=== PATIENT | female | born 1990 | race Caucasian/White ===

== ENCOUNTER 2018-09-22 10:01 | Inpatient (IN) | payer BC ==
[2018-09-22] MEDS ORDERED: CITRIC ACID-SODIUM CITRATE 15 ML CUP PO ONE (10:15)
[2018-09-22] MEDS ORDERED: ceFAZolin IN SWFI 2 GM/20 ML SYRINGE IVP ONE (10:15)
[2018-09-22 10:22] VITALS: BMI 36.6
[2018-09-22] MEDS: LACTATED RINGERS 1,000 ML IV SCH ×2 (10:38→15:06)
[2018-09-22 10:59] LABS: HCT 38.5 % (34.0-46.0); HGB 13.2 gm/dL (11.4-16.0); MCH 32.3 pg (25.0-35.0); MCHC 34.3 g/dL (31.0-37.0); MCV 94.1 fL (80.0-100.0); Mean Platelet Volume 8.3; Platelet Count 186 k/uL (150-450); RBC 4.09 m/uL (3.80-5.40); RDW 13.3 % (11.5-15.5); WBC 11.7 k/uL (3.8-10.6)
--- NOTE | 2018-09-22 11:19 | P.HPOB ---
History of Present Illness H&P Date: 09/22/18 Chief Complaint: Term , two previous sections The patient is a 28-year-old 3 para 2 scissors or 2 admitted at 39-0/7 weeks as established by a 6 week ultrasound. She is admitted for repeat low transverse section having previously undergone section 2. Her has been entirely uncomplicated and group B strep status is negative. Obstetrical history: 3 para 61672 term sections, the first for arrest of dilation and descent in the second as a repeat. Current statistics are listed in history present illness. EDC of 09/29/2018 was established by a 6 week ultrasound. Laboratory workup demonstrates a blood type of O+ with a negative antibody screen. Rubella status is immune. The remainder of the laboratory workup was within normal limits. Early Glucola as well as second trimester Glucola were within normal limits. Group B strep status is negative. Barrel Inspector history: Unremarkable with no history of any infections to include STDs. Review of Systems Review of systems is confined to history of present illness. Past Medical History Past Medical History: Thyroid Disorder Additional Past Medical History / Comment(s): hypothyroidism. GERD History of Any Multi-Drug Resistant Organisms: None Reported Past Surgical History: Section Additional Past Surgical History / Comment(s): CS X 2. [place] teeth. Past Anesthesia/Blood Transfusion Reactions: No Reported Reaction Past Psychological History: No Psychological Hx Reported Smoking Status: Never smoker Past Alcohol Use History: None Reported Past Drug Use History: None Reported - Past Family History Mother Family Medical History: No Reported History Medications and Allergies Home Medications Medication Instructions Recorded Confirmed Type Levothyroxine Sodium [Synthroid] 150 mcg PO QAM 07/22/14 09/22/18 History Pnv,Calcium 72/Iron/Folic Acid 1 each PO DAILY 03/13/16 09/22/18 History [ Plus Tablet] Allergies Allergy/AdvReac Type Severity Reaction Status Date / Time No Known Allergies Allergy Verified 07/22/14 06:35 Exam Vital Signs Temp Pulse Resp BP Pulse Ox 09/22/18 10:18 97.4 F L 90 16 130/77 98 Intake and Output 09/21/18 09/22/18 09/22/18 22:59 06:59 14:59 Other: Weight 90.718 kg In general, this is a well-developed, well-nourished white female in no acute distress. Her heart has a regular rhythm and rate without murmur. Her lungs are clear to auscultation bilaterally in all angel. Her abdomen is gravid, nondistended, has normal active bowel sounds, soft, nontender, and without any palpable masses aside from uterine fundus. Her extremities are without any cyanosis, clubbing, or significant edema and are nontender to palpation bilaterally. Digital cervical examination is deferred. Results Result Diagrams: 09/22/18 10:36 Abnormal Lab Results - Last 24 Hours (Table) 09/22/18 Range/Units 10:36 WBC 11.7 H (3.8-10.6) k/uL Assessment and Plan (1) Term Current Visit: Yes Status: Acute Code(s): Z34.80 - ENCOUNTER FOR SUPRVSN OF NORMAL , UNSP TRIMESTER SNOMED Code(s): 92246182 (2) Previous section Current Visit: Yes Status: Acute Code(s): Z98.89 - OTHER SPECIFIED POSTPROCEDURAL STATES * DO NOT USE * SNOMED Code(s): 979146141 Plan: The patient is admitted for repeat low transverse section. The risks and complications the procedure have been thoroughly discussed and she has voiced understanding and agreed to proceed.
[2018-09-22 11:23] LABS: Band Neutrophils % 2 %; Lymphocytes # (M) 2.46 k/uL (1.0-4.8); Metamyelocytes # (M) 0.12 k/uL (0); Metamyelocytes % 1 %; Myelocytes # (M) 0.12 k/uL (0); Myelocytes % 1 %; Neutrophils % (M) 71 %; Nucleated Red Blood Cells 0 /100 WBC (0-0); Total Cells Counted 200
[2018-09-22] MEDS ORDERED: ONDANSETRON 4 MG/2 ML VIAL ONE (13:42)
[2018-09-22] MEDS ORDERED: KETOROLAC 30 MG/ML 1 ML VIAL ONE (13:42)
[2018-09-22] MEDS ORDERED: OXYTOCIN 10 UNIT/ML 1 ML VIAL ONE (13:42)
[2018-09-22] MEDS ORDERED: NALBUPHINE 10 MG/ML VIAL (10ML MDV) ONE (13:42)
[2018-09-22] MEDS ORDERED: MORPHINE SULFATE (PF) 0.3 MG/0.3 ML SYR ONE (13:42)
[2018-09-22] MEDS ORDERED: ceFAZolin 1,000 MG VIAL ONE (13:42)
[2018-09-22] MEDS ORDERED: diphenhydrAMINE 50 MG/ML 1 ML VIAL IVP PRN ×2 (14:31)
[2018-09-22] MEDS ORDERED: ZOLPIDEM 5 MG TAB PO PRN (14:31)
[2018-09-22] MEDS ORDERED: METOCLOPRAMIDE 5 MG/ML 2 ML VIAL IVP PRN (14:31)
[2018-09-22] MEDS ORDERED: diphenhydrAMINE 50 MG CAP PO PRN (14:31)
[2018-09-22] MEDS ORDERED: KETOROLAC 30 MG/ML 1 ML VIAL IVP PRN (14:31)
[2018-09-22] MEDS ORDERED: LANOLIN CREAM 5 GM TUBE TOPICAL PRN (14:31)
[2018-09-22] MEDS ORDERED: HYDROcodone/APAP 7.5-325MG 1 EACH TAB PO PRN (14:31)
[2018-09-22] MEDS ORDERED: ACETAMINOPHEN TAB 325 MG TAB PO PRN (14:31)
[2018-09-22] MEDS ORDERED: NALOXONE 0.4 MG/ML 1 ML VIAL IV PRN (14:31)
[2018-09-22] MEDS ORDERED: diphenhydrAMINE 25 MG CAP PO PRN (14:31)
[2018-09-22] MEDS ORDERED: SIMETHICONE 80 MG CHEWABLE PO PRN (14:31)
[2018-09-22] MEDS ORDERED: ONDANSETRON 4 MG/2 ML VIAL IVP PRN (14:31)
--- NOTE | 2018-09-22 14:38 | P.OP ---
Date of Procedure: 09/22/18 Preoperative Diagnosis: #1. 39-0/7 weeks, previous section x2 Postoperative Diagnosis: Same Procedure(s) Performed: #1. Repeat low transverse section Anesthesia: spinal Surgeon: Jhon Aponte Business Analyst Project Manager #1: Analy Marinelli Estimated Blood Loss (ml): 500 IV fluids (ml): 800 Urine output (ml): 200 Pathology: none sent Condition: stable Disposition: floor Operative Findings: Intraoperatively, there was a moderate amount of scarring at the level of the muscles and fascia though the uterus was relatively unscarred. The scarring was mostly dense in the midline raphae to just above the bladder. The patient was delivered of a viable 8 lbs. 0 oz. baby girl with Apgars of 8 at 1 minute and 9 at 5 minutes delivered in the left occiput transverse position. The placenta was delivered manually, intact, and grossly normal with a grossly normal three-vessel cord. The uterus, tubes, and ovaries were entirely normal to inspection. Description of Procedure: The patient was prepped and draped in usual fashion after spinal anesthesia was administered by the anesthesiologist. A Pfannenstiel incision was made through a pre-existing scar and extended to the abdomen without difficulty. There was some moderate scarring in the midline just below the fascia and between the rectus muscles which was divided sharply. Bladder blade was placed and the bladder peritoneum elevated and incised and reflected distally. An incision was made in the transverse plane for approximately 2 cm at which time the uterus was entered and clear fluid was noted. The incision was extended in both directions using bandage scissors. The head was encountered in the field and delivered up and through the field where the nose and mouth were thoroughly suctioned. Remainder of the infant was delivered onto the field where the cord was doubly clamped, cut, and the passed for resuscitative measures with weight and Apgars as noted above. A segment of cord was doubly clamped, cut, and set aside should cord gases become necessary. The placenta was delivered manually and intact as noted above. The uterus was exteriorized and the interior cavity of the uterus swept of any remaining placental or membranous fragments. The margins of the incision were grasped with Marti clamps and the incision closed in 2 layers. The first layer was a running locking stitch of 0 chromic catgut followed by a running imbricating stitch of 0 chromic catgut. Some bleeding at the left angle the incision was made hemostatic with several locked stitches on the second layer. There were no other small bleeders noted. The posterior cul-de-sac was suctioned with a guard and the uterus was replaced within the abdominal cavity. The gutters were swept of any remaining blood, fluid, or clot. The incision was reexamined and found to be hemostatic. The parietal peritoneum was loosely reapproximated and layer of muscles examined and found to be hemostatic. The fascia was closed with a single running stitch of 0 Vicryl proceeding from one margin to the other. The subcutaneous tissues were irrigated, made hemostatic with the Bovie, and reapproximated with a running stitch of 30 plain catgut. The skin was reapproximated with a running subcuticular stitch of 4-0 Vicryl from margin to margin. This was followed by placement of half-inch Steri-Strips using Mastisol. Estimated blood loss for the entire case was approximate 500 mL. There were no complications. All sponge, instrument, and needle counts were correct. The patient tolerated the procedure well and proceeded to the recovery room in stable condition. Both mother and infant are resting comfortably in recovery.
[2018-09-22] MEDS ORDERED: OXYTOCIN 20 UNITS/1000 ML NS 1,000 ML IV SCH (14:45)
[2018-09-22] MEDS: SENNOSIDES-DOCUSATE SODIUM 1 EACH TAB PO SCH (19:42)
[2018-09-22 21:16] VITALS: RESP 16
[2018-09-23] MEDS: LACTATED RINGERS 1,000 ML IV SCH ×3 (00:19→23:52)
--- NOTE | 2018-09-23 06:14 | P.PN ---
Progress Note - Text Progress Note Date: 09/23/18 Post op day 1 from duramorph spinal. Patient doing well, able to ambulate, able to urinate, denies leg weakness, or excessive urticaria. Pain well controlled, no respiratory distress, no supplemental O2 use. anesthesia sign off, call if there is any issue.
[2018-09-23] MEDS: LEVOTHYROXINE 75 MCG TAB PO SCH (06:34)
[2018-09-23 07:07] LABS: Basophils # (A) 0.1 k/uL (0-0.2); Basophils % (A) 0 %; Eosinophils # (A) 0.1 k/uL (0-0.7); Eosinophils % (A) 1 %; HCT 36.2 % (34.0-46.0); HGB 12.3 gm/dL (11.4-16.0); Lymphocytes # (A) 1.5 k/uL (1.0-4.8); Lymphocytes % (A) 10 %; MCH 32.2 pg (25.0-35.0); MCHC 33.9 g/dL (31.0-37.0); MCV 95.1 fL (80.0-100.0); Mean Platelet Volume 7.9; Monocytes # (A) 0.9 k/uL (0-1.0); Monocytes % (A) 6 %; Neutrophils % (A) 83 %; Platelet Count 193 k/uL (150-450); RBC 3.81 m/uL (3.80-5.40); RDW 13.3 % (11.5-15.5); WBC 15.7 k/uL (3.8-10.6)
[2018-09-23] MEDS: SENNOSIDES-DOCUSATE SODIUM 1 EACH TAB PO SCH ×2 (08:04→19:34)
--- NOTE | 2018-09-23 08:35 | P.PNOBGPC ---
Subjective - Subjective Patient reports: Reports appetite normal, Reports voiding normally, Reports pain well controlled, Reports ambulating normally : doing well, nursing well Objective - Vital Signs Latest vital signs: Vital Signs Temp Pulse Pulse Resp BP Pulse Ox 09/23/18 04:00 98.0 F 82 16 115/61 96 09/23/18 00:00 97.7 F 97 16 119/67 100 09/22/18 20:00 97.6 F 108 H 16 114/58 09/22/18 16:41 97.7 F 86 20 113/58 97 09/22/18 16:11 97.0 F L 97 20 118/58 97 09/22/18 16:00 97.0 F L 97 20 118/58 98 09/22/18 15:59 20 09/22/18 15:41 97.0 F L 94 20 126/69 97 09/22/18 15:26 97.0 F L 81 20 122/60 96 09/22/18 15:11 75 16 123/61 96 09/22/18 14:56 107 H 16 115/56 97 09/22/18 14:41 96.8 F L 101 H 16 125/63 95 09/22/18 10:18 97.4 F L 90 16 130/77 98 Intake and Output 09/22/18 09/23/18 09/23/18 22:59 06:59 14:59 Intake Total 260 600 Output Total 450 750 Balance -190 -150 Intake: Oral 260 Other 600 Output: Urine 450 750 - Exam Extremities: Present: normal Abdomen: Present: normal appearance, soft. Absent: distention, tenderness Incision: Present: normal, dry, intact Uterus: Present: normal, firm (The uterine fundus as tonic and nontender at the umbilicus.) - Labs Labs: Abnormal Lab Results - Last 24 Hours (Table) 09/22/18 09/23/18 Range/Units 10:36 06:52 WBC 11.7 H 15.7 H (3.8-10.6) k/uL Neutrophils # 13.0 H (1.3-7.7) k/uL Neutrophils # (Manual) 8.50 H (1.3-7.7) k/uL Metamyelocytes # (Man) 0.12 H (0) k/uL Myelocytes # (Manual) 0.12 H (0) k/uL Assessment and Plan (1) Term Current Visit: Yes Status: Acute Code(s): Z34.80 - ENCOUNTER FOR SUPRVSN OF NORMAL , UNSP TRIMESTER SNOMED Code(s): 59182893 (2) Previous section Current Visit: Yes Status: Acute Code(s): Z98.89 - OTHER SPECIFIED POSTPROCEDURAL STATES * DO NOT USE * SNOMED Code(s): 271169214 (3) S/P section Current Visit: Yes Status: Acute Code(s): Z98.89 - OTHER SPECIFIED POSTPROCEDURAL STATES * DO NOT USE * SNOMED Code(s): 607707751 Plan: Continue routine postoperative care. I have encouraged the patient and the hallways regularly. Probable discharge tomorrow morning pending no complications.
[2018-09-23] MEDS: IBUPROFEN 600 MG TAB PO PRN ×2 (16:57→23:05)
[2018-09-24] MEDS: HYDROcodone/APAP 5-325MG 1 EACH TAB PO PRN ×2 (05:40→09:51)
[2018-09-24] MEDS: LEVOTHYROXINE 75 MCG TAB PO SCH (05:41)
[2018-09-24 08:39] VITALS: BP 120/70; PULSE 86; TEMP 98.9
--- NOTE | 2018-09-24 08:45 | P.DS ---
Providers Date of admission: 09/22/18 10:01 Expected date of discharge: 09/24/18 Attending physician: Jhon Aponte Primary care physician: Stated None - Discharge Diagnosis(es) (1) Term Current Visit: Yes Status: Acute (2) Previous section Current Visit: Yes Status: Acute (3) S/P section Current Visit: Yes Status: Acute Hospital Course: The patient is a 28-year-old 3 para 2001 admitted at 39-0/7 weeks by good dating parameters perches admitted for repeat low transverse section having undergone 2 previous sections. Her was entirely incompetent and group E strep status was negative. She was taken to the operating room where she was delivered of a viable 8 lbs. 0 oz. baby girl with Apgars of 8 at 1 minute and 9 at 5 minutes. Her postoperative course was again entirely unremarkable with vital signs remained stable and her temperature was afebrile throughout. She was deemed stable for discharge on post operative day #2 was discharged home to follow-up in the office in 2 weeks for an incision check and 6 weeks routinely. Discharge instructions included calling for any significantly increased bleeding or foul-smelling lochia, significantly increased fever abdominal pain, perineal complaints, breast complaints, incisional complaints, or anything else that concerned her. She was additionally instructed to have nothing in the vagina for at least 6 weeks time to include intercourse. She understood her instructions and agrees to follow up as noted above. Discharge medications included continued vitamins as she has opted to breast-feed perches otherwise provided with a prescription for Tylenol No. 3, 1-2 by mouth every 6 hours when necessary pain, #20 dispensed with no refills. Maternal blood type is O+ and rubella status is immune. Discharge hemoglobin and hematocrit were 12.3 and 36.2 respectively. Procedures: #1. Repeat low transverse section Patient Condition at Discharge: Good Plan - Discharge Summary Discharge Rx Participant: No New Discharge Prescriptions: No Action Levothyroxine Sodium [Synthroid] 150 mcg PO QAM Pnv,Calcium 72/Iron/Folic Acid [ Plus Tablet] 1 each PO DAILY Discharge Medication List Levothyroxine Sodium [Synthroid] 150 mcg PO QAM 07/22/14 [History] Pnv,Calcium 72/Iron/Folic Acid [ Plus Tablet] 1 each PO DAILY 03/13/16 [ History] Follow up Appointment(s)/Referral(s): Jhon Aponte MD [STAFF PHYSICIAN] - 2 Weeks Discharge Disposition: HOME SELF-CARE
[2018-09-24] MEDS: SENNOSIDES-DOCUSATE SODIUM 1 EACH TAB PO SCH (10:25)
== END 2018-09-24 09:50 | disposition home or self-care (01) | DRG 788 ==
LOC: 4FBP 10:01
PROVIDERS: ADMIT Obstetrics & Gynecology; ATTEND Obstetrics & Gynecology
PROC: 10D00Z1 Extraction of Products of Conception, Low, Open Approach (ICD-10-PCS; principal; 2018-09-22 13:51)
DX: O34.211 Maternal care for low transverse scar from previous cesarean delivery (principal); O99.284 Endocrine, nutritional and metabolic diseases complicating childbirth; E03.9 Hypothyroidism, unspecified; Z37.0 Single live birth; Z79.890 Hormone replacement therapy; Z3A.39 39 weeks gestation of pregnancy
CPT/HCPCS: 85025; 86850; 86900; 86901

== ENCOUNTER 2020-08-17 10:06 | Inpatient (IN) | payer BC ==
[2020-08-16 14:27] VITALS: BMI 35.6
[2020-08-17] MEDS ORDERED: METHYLERGONOVINE 0.2 MG/ML 1 ML AMP IM PRN (10:20)
[2020-08-17] MEDS ORDERED: OXYTOCIN 10 UNIT/ML 1 ML VIAL IM PRN (10:20)
[2020-08-17] MEDS ORDERED: CARBOPROST TROMETHAMINE 250 MCG/ML 1 ML AMP IM PRN (10:20)
[2020-08-17] MEDS ORDERED: LIDOCAINE 0.5% (PF) 5 MG/ML (50 ML SDV) SQ PRN (10:20)
[2020-08-17] MEDS ORDERED: TERBUTALINE 1 MG/ML VIAL SQ PRN (10:20)
[2020-08-17] MEDS: LACTATED RINGERS 1,000 ML IV SCH ×4 (10:35→22:20)
[2020-08-17 10:58] LABS: Basophils # (A) 0.1 k/uL (0-0.2); Basophils % (A) 1 %; Eosinophils # (A) 0.3 k/uL (0-0.7); Eosinophils % (A) 2 %; HCT 42.5 % (34.0-46.0); HGB 14.3 gm/dL (11.4-16.0); Lymphocytes # (A) 2.2 k/uL (1.0-4.8); Lymphocytes % (A) 17 %; MCH 31.2 pg (25.0-35.0); MCHC 33.6 g/dL (31.0-37.0); Mean Platelet Volume 8.7; Monocytes # (A) 0.6 k/uL (0-1.0); Monocytes % (A) 5 %; Neutrophils # (A) 9.6 k/uL (1.3-7.7); Neutrophils % (A) 75 %; Platelet Count 214 k/uL (150-450); RBC 4.57 m/uL (3.80-5.40); WBC 12.8 k/uL (3.8-10.6)
[2020-08-17] MEDS ORDERED: CITRIC ACID-SODIUM CITRATE 15 ML CUP PO ONE (11:46)
[2020-08-17] MEDS ORDERED: diphenhydrAMINE 25 MG CAP PO PRN (13:29)
[2020-08-17] MEDS ORDERED: HYDROcodone/APAP 5-325MG 1 EACH TAB PO PRN (13:29)
[2020-08-17] MEDS ORDERED: HYDROcodone/APAP 7.5-325MG 1 EACH TAB PO PRN (13:29)
[2020-08-17] MEDS ORDERED: NALOXONE 0.4 MG/ML 1 ML VIAL IV PRN (13:29)
[2020-08-17] MEDS ORDERED: diphenhydrAMINE 50 MG CAP PO PRN (13:29)
[2020-08-17] MEDS ORDERED: diphenhydrAMINE 50 MG/ML 1 ML VIAL IVP PRN ×2 (13:29)
[2020-08-17] MEDS ORDERED: ZOLPIDEM 5 MG TAB PO PRN (13:29)
[2020-08-17] MEDS ORDERED: ONDANSETRON 4 MG/2 ML VIAL IVP PRN (13:29)
[2020-08-17] MEDS ORDERED: METOCLOPRAMIDE 5 MG/ML 2 ML VIAL IVP PRN (13:29)
[2020-08-17] MEDS ORDERED: OXYTOCIN 20 UNITS/1000 ML NS 1,000 ML IV SCH (13:30)
--- NOTE | 2020-08-17 13:34 | P.HPOB ---
History of Present Illness H&P Date: 08/17/20 Chief Complaint: 39 and one sevenths weeks, previous section 3, un desired fertilit The patient is a 30-year-old 4 para 3003 who presents to the hospital 39 and one sevenths weeks as established by seven-week ultrasound. She is admitted for repeat low transverse section with intraoperative bilateral tubal occlusion using Filshie clips. She has had a history of 3 previous sections and is requesting repeat. Consent was signed for tubal ligation in the office. Her has otherwise been entirely uncomplicated and group B strep status is negative. Obstetrical history: 4 para 3003 with 3 term sections. Current statistics are listed in history present illness. EDC of 08/23/2020 was established by seven-week ultrasound. Laboratory workup demonstrated a blood type of O+ with a negative antibody screen. Rubella status is immune. The remainder of the laboratory workup was within normal limits. One hour Glucola is normal and group B strep status is negative. Gynecologic history: Unremarkable with no history of any infections to include STDs. Review of Systems Review of systems is confined to history of present illness. Past Medical History Past Medical History: Thyroid Disorder Additional Past Medical History / Comment(s): hypothyroidism History of Any Multi-Drug Resistant Organisms: None Reported Past Surgical History: Section Additional Past Surgical History / Comment(s): CS X 3. [place] teeth. Past Anesthesia/Blood Transfusion Reactions: No Reported Reaction Past Psychological History: No Psychological Hx Reported Smoking Status: Never smoker Past Alcohol Use History: None Reported Past Drug Use History: None Reported - Past Family History Mother Family Medical History: No Reported History Father Family Medical History: Cancer, Diabetes Mellitus, Hyperlipidemia Medications and Allergies Home Medications Medication Instructions Recorded Confirmed Type Levothyroxine Sodium [Synthroid] 150 mcg PO QAM 07/22/14 08/17/20 History Pnv,Calcium 72/Iron/Folic Acid 1 each PO HS 03/13/16 08/17/20 History [ Plus Tablet] Allergies Allergy/AdvReac Type Severity Reaction Status Date / Time No Known Allergies Allergy Verified 08/17/20 10:19 Exam Vital Signs Temp Pulse Resp BP Pulse Ox 08/17/20 10:18 96.8 F L 92 16 121/68 99 Intake and Output 08/16/20 08/17/20 08/17/20 22:59 06:59 14:59 Other: Weight 88.451 kg In general, this is a well-developed, well-nourished white female in no acute distress. Her heart has a regular rhythm and rate without murmur. Her lungs are clear to auscultation bilaterally in all angel. Her abdomen is gravid, nondistended, has normal active bowel sounds, is soft, nontender, and without any palpable masses aside from uterine fundus. Her extremities are without any cyanosis, clubbing, or significant edema and are nontender to palpation bilaterally. Digital cervical examination is deferred. Results Result Diagrams: 08/17/20 10:29 Abnormal Lab Results - Last 24 Hours (Table) 08/17/20 Range/Units 10:29 WBC 12.8 H (3.8-10.6) k/uL Neutrophils # 9.6 H (1.3-7.7) k/uL Assessment and Plan (1) Family planning Current Visit: Yes Status: Acute Code(s): Z30.09 - ENCOUNTER FOR OTH GENERAL CNSL AND ADVICE ON CONTRACEPTION SNOMED Code(s): 596333945 (2) Term Current Visit: Yes Status: Acute Code(s): Z34.80 - ENCOUNTER FOR SUPRVSN OF NORMAL , UNSP TRIMESTER SNOMED Code(s): 60195285 (3) Previous section Current Visit: Yes Status: Acute Code(s): Z98.89 - OTHER SPECIFIED POSTPROCEDURAL STATES * DO NOT USE * SNOMED Code(s): 572534930 Plan: The patient is admitted for repeat low transverse section with intraoperative bilateral tubal occlusion using Filshie clips. Risks and complications of the procedures have been thoroughly discussed and she has signed consent for tubal ligation in the office.
--- NOTE | 2020-08-17 13:39 | P.OP ---
Date of Procedure: 08/17/20 Preoperative Diagnosis: #1. 39 and one sevenths weeks, previous section 3 #2. Undesired fertility Postoperative Diagnosis: Same Procedure(s) Performed: #1. Repeat low transverse section #2. Intraoperative bilateral tubal occlusion with Filshie clips Anesthesia: spinal Surgeon: Jhon Aponte Cream Ripener #1: Mariangel Guy Estimated Blood Loss (ml): 400 IV fluids (ml): 800 Urine output (ml): 100 Pathology: none sent Condition: stable Disposition: floor Operative Findings: There was a significant amount of scarring at the level of the fascia and muscles. There was some peritoneal scarring at the bladder flap. No complications were encountered despite this. She was delivered of a viable 8 lbs. 4 oz. baby boy with Apgars of 9 at 1 minute and 9 at 5 minutes in the vertex presentation. The placenta was delivered manually and intact was otherwise grossly normal with a grossly normal three-vessel cord. The uterus, tubes, and ovaries were entirely normal otherwise. A Filshie clip was placed firmly across the isthmic portion of each fallopian tube. Description of Procedure: The patient was prepped and draped in usual fashion after spinal anesthesia was administered by the anesthesiologist. A Pfannenstiel incision was made through pre-existing scar and extended into the abdominal cavity with a small amount of difficulty at the level of the fascia which was densely scarred and fairly thick. Once the abdomen was entered there was some filmy scarring at the level of the bladder flap which was reduced by taking the bladder flap down. A 270 in cision was then made in the transverse plane of the lower uterine segment to enter the uterus at which time clear fluid was noted. The head was delivered up and through the incision where the nose and mouth were thoroughly suctioned. The remainder of the was delivered onto the field where the cord was doubly clamped, cut, and the infant passed resuscitative measures with weight and Apgars as noted above. cord blood was collected. A segment of cord was doubly clamped, cut, and set aside should cord gases become necessary. The placenta was delivered manually and intact as noted above. The uterus was exteriorized and the interior cavity of the uterus swept of any remaining placental or membranous fragments. The margins of the incision were grasped with Marti clamps and the incision closed in a single running locking stitch of 0 chromic catgut from margin to margin. Hemostasis appeared excellent. The posterior cul-de-sac was suctioned using a guard as well as a laparotomy sponge. Uterus was replaced within the abdominal cavity and the incision again reexamined and found to be hemostatic. The gutters were swept of any remaining blood, fluid, or clot. The parietal peritoneum was unable to be loosely approximated given the previous scarring and so a loose [id number] stitch was utilized to reapproximate the muscles and peritoneum in the midline. The area of muscles were examined and made hemostatic with the Bovie. The fascia was closed with 2 running stitches of 0 Vicryl proceeding from margin to margin. The subcutaneous tissues were irrigated, made hemostatic with the Bovie, and reapproximated with a running stitch of 30 plain catgut. The skin was reapproximated with a running subcuticular stitch of 4-0 Vicryl followed by half-inch Steri-Strips placed with Mastisol. Estimated blood loss for the case was approximate 400 mL. There are no complications. The patient tolerated the procedure well and proceeded to the recovery room in stable condition. All sponge, instrument, and needle counts were correct. Both mother and are resting comfortably in recovery.
[2020-08-17] MEDS: SENNOSIDES-DOCUSATE SODIUM 1 EACH TAB PO SCH (19:40)
[2020-08-17] MEDS: KETOROLAC 15 MG/ML 1 ML VIAL IVP PRN (21:11)
[2020-08-18] MEDS ORDERED: ONDANSETRON 4 MG/2 ML VIAL IVP PRN (01:34)
[2020-08-18] MEDS ORDERED: diphenhydrAMINE 50 MG/ML 1 ML VIAL IVP PRN ×2 (01:34)
[2020-08-18] MEDS ORDERED: NALOXONE 0.4 MG/ML 1 ML VIAL IV PRN (01:35)
[2020-08-18] MEDS: KETOROLAC 15 MG/ML 1 ML VIAL IVP PRN (04:50)
--- NOTE | 2020-08-18 06:30 | P.PN ---
Progress Note - Text Date:[ 08/18/2020] Time: 06:08 The patient is status post section Vital signs stable VAS:0-10 Patient has no complaints of pain. The patient incurred some minimal itching yesterday, this itching is now subsiding. Pain meds to be managed by service.
[2020-08-18 07:53] LABS: Basophils % (A) 0 %; Eosinophils # (A) 0.2 k/uL (0-0.7); Eosinophils % (A) 2 %; HCT 37.3 % (34.0-46.0); HGB 12.3 gm/dL (11.4-16.0); Lymphocytes # (A) 1.4 k/uL (1.0-4.8); Lymphocytes % (A) 12 %; Mean Platelet Volume 8.5; Monocytes # (A) 0.6 k/uL (0-1.0); Monocytes % (A) 6 %; Neutrophils # (A) 9.2 k/uL (1.3-7.7); Neutrophils % (A) 79 %; Platelet Count 169 k/uL (150-450); RBC 3.97 m/uL (3.80-5.40); RDW 12.7 % (11.5-15.5); WBC 11.6 k/uL (3.8-10.6)
--- NOTE | 2020-08-18 08:38 | P.PNOBGPC ---
Subjective - Subjective Patient reports: Reports appetite normal, Reports voiding normally, Reports pain well controlled, Reports ambulating normally : doing well, nursing well Objective - Vital Signs Latest vital signs: Vital Signs Temp Pulse Resp BP Pulse Ox 08/18/20 04:00 97.9 F 80 18 111/65 98 08/18/20 00:00 97.9 F 78 18 118/72 100 08/17/20 20:00 97.8 F 82 18 111/72 98 08/17/20 16:00 96.8 F L 87 16 114/61 98 08/17/20 15:10 96.9 F L 92 16 112/72 99 08/17/20 14:40 100 16 111/63 99 08/17/20 14:10 89 18 123/63 08/17/20 13:55 97.1 F L 94 16 113/64 100 08/17/20 13:40 87 16 124/74 100 08/17/20 13:25 88 18 111/56 99 08/17/20 13:10 96.8 F L 84 18 108/57 99 08/17/20 10:18 96.8 F L 92 16 121/68 99 Intake and Output 08/17/20 08/18/20 08/18/20 22:59 06:59 14:59 Output Total 500 Balance -500 Output: Urine 500 Uretheral (Jimenez) 200 Other: Voiding Method Indwelling Catheter # Voids 1 - Exam Extremities: Present: normal Abdomen: Present: normal appearance, soft. Absent: distention, tenderness Incision: Present: normal, dry, intact Uterus: Present: normal, firm (Uterine fundus as tonic and nontender around the umbilicus) - Labs Labs: Abnormal Lab Results - Last 24 Hours (Table) 08/17/20 08/18/20 Range/Units 10:29 07:30 WBC 12.8 H 11.6 H (3.8-10.6) k/uL Neutrophils # 9.6 H 9.2 H (1.3-7.7) k/uL Assessment and Plan (1) Family planning Current Visit: Yes Status: Acute Code(s): Z30.09 - ENCOUNTER FOR OTH GENERAL CNSL AND ADVICE ON CONTRACEPTION SNOMED Code(s): 984469109 (2) Term Current Visit: Yes Status: Acute Code(s): Z34.80 - ENCOUNTER FOR SUPRVSN OF NORMAL , UNSP TRIMESTER SNOMED Code(s): 03179624 (3) Previous section Current Visit: Yes Status: Acute Code(s): Z98.89 - OTHER SPECIFIED POSTPROCEDURAL STATES * DO NOT USE * SNOMED Code(s): 657369606 (4) S/P section Current Visit: Yes Status: Acute Code(s): Z98.89 - OTHER SPECIFIED POSTPROCEDURAL STATES * DO NOT USE * SNOMED Code(s): 224075809 Plan: Continue routine postoperative care. I encouraged the patient ambulate in the hallways routinely and would anticipate discharge home tomorrow pending no complications.
[2020-08-18] MEDS: SENNOSIDES-DOCUSATE SODIUM 1 EACH TAB PO SCH ×2 (13:45→21:01)
[2020-08-18] MEDS: IBUPROFEN 600 MG TAB PO PRN (19:20)
[2020-08-18] MEDS: SIMETHICONE 80 MG CHEWABLE PO PRN (19:20)
[2020-08-19] MEDS: ACETAMINOPHEN TAB 325 MG TAB PO PRN ×2 (00:05→05:52)
[2020-08-19] MEDS: IBUPROFEN 600 MG TAB PO PRN ×2 (03:29→08:23)
[2020-08-19] MEDS: SIMETHICONE 80 MG CHEWABLE PO PRN (03:29)
[2020-08-19] MEDS: SENNOSIDES-DOCUSATE SODIUM 1 EACH TAB PO SCH (08:23)
[2020-08-19 08:30] VITALS: BP 115/76; PULSE 98; RESP 16; TEMP 98.5
--- NOTE | 2020-08-19 10:38 | P.DS ---
Providers Date of admission: 08/17/20 10:06 Expected date of discharge: 08/19/20 Attending physician: hJon Aponte Primary care physician: Stated None - Discharge Diagnosis(es) (1) Family planning Current Visit: Yes Status: Acute (2) Term Current Visit: Yes Status: Acute (3) Previous section Current Visit: Yes Status: Acute (4) S/P section Current Visit: Yes Status: Acute Hospital Course: The patient is a 30-year-old 4 para 3003 admitted at 39-1/7 weeks by good dating parameters. She is admitted for repeat low transverse section with intraoperative bilateral tubal occlusion using Filshie clips. Her has been entirely uncomplicated and group B strep status is negative. She was taken the operating room where she underwent the above procedures and an incompetent fashion. She was delivered of a viable 8 lbs. 4 oz. baby boy with Apgars of 9 at 1 minute and 9 at 5 minutes. Her postoperative and courses have been entirely unremarkable vital signs remaining stable and her temperature was afebrile throughout. She was deemed stable for discharge on the morning of postoperative day #2 was discharged home to follow-up in the office in 2 weeks for an incision check and 6 weeks routinely. Discharge instructions included calling for any significantly increased bleeding or foul-smelling lochia, significantly increased fever or abdominal pain, perineal complaints, breast complaints, incisional complaints, or anything else that concerned her. She was additionally instructed to have nothing in the vagina for at least 6 weeks time and to abstain from any heavy lifting over the same period of time. She was lastly instructed to do no driving until off of all pain medications or 2 weeks' time, whichever came first. She understands all of her instructions and agrees to follow up as noted above. Discharge medications included a prescription for Tylenol 3, 1-2 by mouth every 6 hours when necessary pain, #20 dispensed with no refills. She was additionally use [id number] analgesic pain medications as needed as well as to continue vitamins as she has opted to breast-feed. Maternal blood type is O+ and rubella status is immune. Discharge hemoglobin and hematocrit were 12.3 and 37.3 respectively. Procedures: #1. Repeat low transverse section #2. Intraoperative bilateral tubal occlusion with Filshie clips Patient Condition at Discharge: Stable Plan - Discharge Summary Discharge Rx Participant: Yes New Discharge Prescriptions: No Action Levothyroxine Sodium [Synthroid] 150 mcg PO QAM Pnv,Calcium 72/Iron/Folic Acid [ Plus Tablet] 1 each PO HS Discharge Medication List Levothyroxine Sodium [Synthroid] 150 mcg PO QAM 07/22/14 [History] Pnv,Calcium 72/Iron/Folic Acid [ Plus Tablet] 1 each PO HS 03/13/16 [History] Follow up Appointment(s)/Referral(s): Jhon Aponte MD [STAFF PHYSICIAN] - 2 Weeks Discharge Disposition: HOME SELF-CARE
== END 2020-08-19 12:00 | disposition home or self-care (01) | DRG 785 ==
LOC: 4FBP 10:06
PROVIDERS: ADMIT Obstetrics & Gynecology; ATTEND Obstetrics & Gynecology
PROC: 10D00Z1 Extraction of Products of Conception, Low, Open Approach (ICD-10-PCS; principal; 2020-08-17 12:12)
PROC: 0UL70CZ Occlusion of Bilateral Fallopian Tubes with Extraluminal Device, Open Approach (ICD-10-PCS; principal; 2020-08-17 12:12)
DX: O99.284 Endocrine, nutritional and metabolic diseases complicating childbirth (principal); O34.211 Maternal care for low transverse scar from previous cesarean delivery; E03.9 Hypothyroidism, unspecified; Z30.2 Encounter for sterilization; Z37.0 Single live birth; Z3A.39 39 weeks gestation of pregnancy; Z79.890 Hormone replacement therapy; Z83.3 Family history of diabetes mellitus; Z80.9 Family history of malignant neoplasm, unspecified; Z83.438 Family history of other disorder of lipoprotein metabolism and other lipidemia
CPT/HCPCS: 85025; 86850; 86900; 86901

== ENCOUNTER 2021-11-07 18:55 | Emergency (ER) | payer BC ==
[2021-11-07] MEDS ORDERED: ACETAMINOPHEN TAB 500 MG TAB PO STA (21:26)
[2021-11-07] MEDS ORDERED: IBUPROFEN 600 MG TAB PO STA ×2 (21:26→23:02)
--- NOTE | 2021-11-07 21:26 | ED ---
General Adult HPI <Crystal Beck - Last Filed: 11/07/21 21:24> <Emmanuel Lei - Last Filed: 11/07/21 23:04> - General Stated complaint: Covid +, wants BAM Time Seen by Provider: 11/07/21 21:24 - History of Present Illness Initial comments: 31 year-old female patient presenting for monoclonal antibodies after testing positive for COVID at home. States she has been sick for the last 7 days. Did have a positive at home test. Reports cough, congestion, body aches, and fevers. Has been taking ibuprofen at home. Denies any significant medical problems. Denies chance of . (Crystal Beck) - Related Data Home Medications Medication Instructions Recorded Confirmed Levothyroxine Sodium [Synthroid] 150 mcg PO DAILY 07/22/14 11/07/21 Ibuprofen [Motrin Ib] 400 mg PO Q8H PRN 11/07/21 11/07/21 Allergies Allergy/AdvReac Type Severity Reaction Status Date / Time No Known Allergies Allergy Verified 11/07/21 22:55 Review of Systems ROS Other: All systems not noted in ROS Statement are negative. <Crystal Beck - Last Filed: 11/07/21 21:24> ROS Other: All systems not noted in ROS Statement are negative. <Emmanuel Lei - Last Filed: 11/07/21 23:04> ROS Statement: Those systems with pertinent positive or pertinent negative responses have been documented in the HPI. Past Medical History Past Medical History: Thyroid Disorder Additional Past Medical History / Comment(s): hypothyroidism History of Any Multi-Drug Resistant Organisms: None Reported Past Surgical History: Section Additional Past Surgical History / Comment(s): CS X 3. [place] teeth. Past Anesthesia/Blood Transfusion Reactions: No Reported Reaction Past Psychological History: No Psychological Hx Reported Smoking Status: Never smoker Past Alcohol Use History: None Reported Past Drug Use History: None Reported - Past Family History Mother Family Medical History: No Reported History Father Family Medical History: Cancer, Diabetes Mellitus, Hyperlipidemia <Crystal Beck - Last Filed: 11/07/21 21:24> General Exam General appearance: alert, in no apparent distress, other (This is a well- developed, well-nourished adult female in no acute distress.) ENT exam: Present: normal exam, normal oropharynx, mucous membranes moist Respiratory exam: Present: normal lung sounds bilaterally. Absent: respiratory distress, wheezes, rales, rhonchi, stridor Cardiovascular Exam: Present: regular rate, normal rhythm, normal heart sounds. Absent: systolic murmur, diastolic murmur, rubs, gallop, clicks GI/Abdominal exam: Present: soft, normal bowel sounds. Absent: distended, tenderness, guarding, rebound, rigid Neurological exam: Present: alert, oriented X3, CN II-XII intact Psychiatric exam: Present: normal affect, normal mood Skin exam: Present: warm, dry, intact, normal color. Absent: rash <Crystal Beck - Last Filed: 11/07/21 21:24> Course Vital Signs 11/07/21 21:22 Temperature 102.7 F H Pulse Rate 112 H Respiratory 18 Rate Blood Pressure 119/80 O2 Sat by Pulse 97 Oximetry Medical Decision Making <Emmanuel Lei - Last Filed: 11/07/21 23:04> - Medical Decision Making I saw this patient in conjunction with the nurse practitioner. I performed independent history and physical exam. Agree with case management. (Emmanuel Lei) - Lab Data Lab Results 11/07/21 Range/Units 21:31 Coronavirus (PCR) Detected A (Not Detectd) Disposition <Crystal Beck - Last Filed: 11/07/21 21:24> Is patient prescribed a controlled substance at d/c from ED?: No <Emmanuel Lei - Last Filed: 11/07/21 23:04> Clinical Impression: COVID-19 Disposition: HOME SELF-CARE Condition: Good Instructions (If sedation given, give patient instructions): Coronavirus Disease 2019 (COVID-19) Referrals: Stevie Lopez DO [Primary Care Provider] - 1-2 days
[2021-11-07] MEDS ORDERED: SODIUM CHLORIDE 0.9% 50 ML IVPB ONE (22:00)
[2021-11-07] MEDS ORDERED: CASIRIVIMAB (REGN10933) (EUA) 600 MG, IMDEVIMAB (REGN10987) (EUA) 600 MG in SODIUM CHLO... IVPB ONE (22:00)
[2021-11-07] MEDS ORDERED: SODIUM CHLORIDE 0.9% 500 ML 500 ML IV STA (23:02)
[2021-11-08 01:43] VITALS: BP 111/84; PULSE 84; RESP 20; TEMP 98.5
== END 2021-11-08 01:43 | disposition home or self-care (01) ==
LOC: EC 18:55
DX: U07.1 COVID-19 (principal); Z79.890 Hormone replacement therapy; Z79.1 Long term (current) use of non-steroidal anti-inflammatories (NSAID)
CPT/HCPCS: 87635; 99283; Q0244

== ENCOUNTER → 2024-05-05 | Outpatient (CLI) | payer BC ==
--- NOTE | 2024-05-05 20:53 | MR ---
EXAMINATION TYPE: MR lumbar spine wo con DATE OF EXAM: 05/05/2024 8:37 PM CLINICAL INDICATION:Female, 33 years old with history of low back pain COMPARISON: None TECHNIQUE: Multi planar, multi sequence imaging was performed utilizing: T1-weighted, T2-weighted, a nd turbo inversion recovery imaging of the lumbar spine. IV Contrast: None. FINDINGS: Alignment: The lumbar vertebral bodies have preserved heights and alignment. Cord: The conus medullaris and the distal spinal cord appear unremarkable with regards to their signa l intensity and morphology. Bones/Discs: Mild multilevel degenerative changes are appreciated. No suspicious osseous marrow signa l Multilevel disc desiccation is identified. T12-L1: No evidence of significant spinal canal stenosis or neural foraminal stenosis. L1-L2: Broad-based disc bulge is identified. The spinal canal neural foramen are patent. L2-L3: Broad-based disc bulge is identified with facet arthropathy and hypertrophy ligamentum flavum. There is moderate spinal canal narrowing. The neural foramen remain patent. L3-L4: No significant disc pathology. Facet arthropathy is identified creating mild spinal canal narr owing. There is mild right and mild left neural foraminal stenosis. L4-L5: Broad-based disc bulge is identified with small right subarticular disc protrusion and annular fissure. Moderate spinal canal stenosis. There is mild right and moderate left neural foraminal shani rowing. L5-S1: Broad-based disc bulge is identified. The spinal canal is patent. There is mild right and mode rate left neural foraminal narrowing. Other findings: None. IMPRESSION: 1. Right subarticular disc herniation at the L4-L5 level creating moderate spinal and left neural for aminal stenosis. 2. Additional multilevel degenerative changes of the lumbar spine creating up to mild spinal and mode rate left neural foraminal narrowing.
== END | disposition home or self-care (01) ==
LOC: RADMRIMAIN 20:24
PROVIDERS: ATTEND Orthopaedic Surgery
DX: M51.26 Other intervertebral disc displacement, lumbar region (principal); M47.816 Spondylosis without myelopathy or radiculopathy, lumbar region; M99.73 Connective tissue and disc stenosis of intervertebral foramina of lumbar region
CPT/HCPCS: 72148

== ENCOUNTER → 2024-05-25 | Outpatient (CLI) | payer BC ==
[2024-05-25 07:52] VITALS: BP 116/79; PULSE 70; RESP 16; TEMP 97.1
--- NOTE | 2024-05-25 15:00 | P.PAINPG ---
PQRS Measure Charge Sheet Comment: HISTORY OF PRESENT ILLNESS: A 34 yr old female as a referral from Dr Grayson Munoz presents today w severe and chronic LBP > 3 mo secondary to DDD, spondylosis and facet arthropathy without myelopathy for evaluation. Pt states pain level is provoked at 8 /10 in intensity, intermittent, localized in the lower lumbar spine, predominantly axial, achy in character w occasional shooting pain towards the L hip and LLE. Pain is provoked by bending, sitting. Pain is alleviated by chiropractic treatments x 1 yr which ended in Fall 2022 , physician guided home exercises/ stretches every other day since Fall 2022, heat, medications (Ibu), topical BioFreeze, repositioning and rest . Oswestry axial pain score at 15. PMH: OA, Hypothyroidism PSH: C section x3, [place] Teeth Extraction SH: Negative x3 FH: Mo- No Reported History. Fa- CA, DM, CAD All: See list Meds: See list REVIEW OF ORGAN SYSTEMS: CONSTITUTIONAL: No fevers or chills. No recent weight loss. NEUROLOGICAL: + numbness and tingling along the distal extremities. No seizure disorders or headaches. MUSCULOSKELETAL: + pain PSYCHIATRIC: Denies current depression or suicidal thoughts. Physical Examinations : Constitutional : Cooperative , not in acute distress . Neurologic : Cranial nerve II to XII intact. No focal neurological deficits. Psychiatric : alert & oriented x 3. Matching mood & appropriate affect. Judgment & insight intact. Musculoskeletal : Cervical Spine Motor strength in the deltoid and biceps: Normal right side. Normal Left side Motor strength biceps and the wrist extensors: Normal right side . Normal left side Motor strength in the triceps muscle: Normal right side. Normal left side Deep tendon reflexes: Normal at the biceps. Normal at Brachioradialis. Normal at triceps Vertebral body tenderness to deep palpation over Cervical facet loading test: positive bilaterally Spurling test: positive bilaterally Neck distraction test: positive bilaterally Jared sign: positive bilaterally Lumbar spine Motor strength lower extremities ,thigh and legs 5/5 Right side , 5/5 Left side Deep tendon reflexes : Normal Knee Jerk. Normal Ankle Jerk Vertebral body tenderness over Callejas Test positive L4-5 Lumbar facet Loading Test: positive Right / positive Left Range of motion of the lumbar spine Flexion 30 degrees, extension 10 degrees Straight Leg Raise test: Left/ Right positive at < 35 degrees Angelito test: positive right / positive left. Severe tenderness over the Sacroiliac joint on the Right / Left sides Gaenslen test: positive bilaterally Seated flexion test: positive bilaterally. Sacral spine : Severe tenderness over the Sacroiliac joint: right side / left side Range of motion: Flexion of the lumbar spine <60 degrees Range of motion: Extension of the lumbar spine <20 degrees Gaenslen's Test positive Angelito test: positive right side / left side Thigh Thrust Test Sacral Thrust Test Imaging: MRI non contrast of the lumbar spine from 05/05/24 reviewed Assessment/ Plan : Lumbar DDD, L4-L5 spinal canal stenosis, L Hip Trochanteric Bursitis, BL Hip OA Recommendation of [place] L4-L5 #1. May need a series of injections for optimal pain relief. Risks, benefits of procedure discussed and patient verbalized understanding. Admits to anti- coagulant use or medical history of diabetes. Protocol for discontinuation/ continuation of medications kaylee procedure discussed. All questions answered. I have spent greater than 30 minutes on patient care today. Dr Carvajal was available by phone for the evaluation of this patient. The time was used to review the medical records including relevant urine studies and Prescription history (MAPs), review of the available imaging, evaluation and examination of the patient, coordination of care with the medical staff and if applicable referring physicians, as well as creation of the medical record PQRS Narrative: Smoking Status Never smoker Home Medications: Ambulatory Orders Levothyroxine Sodium [Synthroid] 150 mcg PO DAILY 07/22/14 Ibuprofen [Motrin Ib] 400 mg PO Q8H PRN 11/07/21 Controlled Substance Measures - Controlled Substance Measures Is patient prescribed a controlled substance at discharge?: No
== END | disposition home or self-care (01) ==
LOC: PNWHC3 07:34
PROVIDERS: ATTEND Specialist
DX: M51.16 Intervertebral disc disorders with radiculopathy, lumbar region (principal); M48.061 Spinal stenosis, lumbar region without neurogenic claudication; M16.0 Bilateral primary osteoarthritis of hip; M70.62 Trochanteric bursitis, left hip
CPT/HCPCS: 99211

== ENCOUNTER 2024-09-18 08:41 | Day surgery (SDC) | payer BC ==
[~2024-09-18 08:41] MED LIST: LACTATED RINGERS 1,000 ML IV SCH
[2024-09-18 09:22] VITALS: TEMP 98.4
[2024-09-18] MEDS ORDERED: methylPREDNISolone ACETATE 80 MG/ML 1 ML VIAL ONE (09:33)
[2024-09-18] MEDS ORDERED: IOPAMIDOL M200 10 ML VIAL ONE (09:33)
--- NOTE | 2024-09-18 09:41 | P.PCN ---
Date of Procedure: 09/18/24 Procedure(s) Performed: PREOPERATIVE DIAGNOSIS: 1- Lumbar Degenerative Disc Diseases 2-Lumbar radiculopathy. 3-lumbar spinal stenosis POSTOPERATIVE DIAGNOSIS: 1-lumbar degenerative disc disease. 2-lumbar radiculopathy. 3-lumbar spinal stenosis. PROCEDURE 1. Lumbar epidural steroid injection under fluoroscopic guidance at the L4-5 level. (Fluoroscopy imaging was available in radiology department) 2. Lumbar epidurogram. ANESTHESIA: Lidocaine 1% 3 and then only. EBL: Minimal PROCEDURE INDICATION: The patient with low back pain and radiculitis symptoms unresponsive to conservative treatment. Fluoroscopy was used to optimize visualization of the needle placement and to maximize safety. PROCEDURE DESCRIPTION / TECHNIQUE: The patient was seen and identified in the preoperative area. Risks, benefits, complications including but not limited to infections ,bleeding ,allergic reaction to the medications ,nerve damage and not complete pain releife , and alternatives were discussed with the patient. The patient agreed to proceed with the procedure and signed the consent, and vital signs were stable. Patient was taken to the OR and time out was completed. The patient was placed in the prone position on procedure table and a pillow was placed under the abdomen to reduce lumbar lordosis. The lumbosacral area was prepped and draped in the usual sterile fashion.ere closely monitored during the procedure. Vital signs was monitered during the entire procedure. Using anterior-posterior fluoroscopy, the L4-5 interlaminar space was identified and the skin over this site was marked and then infiltrated with 1% lidocaine subcutaneously. Subsequently, a 20-gauge Tuohy epidural needle was inserted and advanced toward the epidural space using the ``Loss of resistance technique and guided by AP and lateral fluoroscopy. The correct needle position in the epidural space was verified with the injection of 2 mL of the water soluble contrast dye Isovue 200 contrast and observing an excellent epidurogram with the epidural spread of the dye, after negative aspiration for blood and CSF and in the absence of paresthesias. Again after negative aspiration, a 6 ml mixture containing 80 mg of Depo-medrol ( Preservetive Free ), and 2 ml of preservative free Normal Saline, and 2 ml of preservative free lidocaine 1% solution was injected and a washout of epidurogram was seen. Needle was withdrawn intact, skin was cleansed, and bandages were applied. COMPLICATIONS: None DISPOSITION / PLANS: The patient was placed in a supine position and transferred to the recovery area in a stable condition for observation. There was no evidence of lower extremity motor or sensory deficit after the procedure. Patient was discharged from the recovery room after meeting discharge criteria. Home discharge instructions were given to the patient by the staff. The patient was reexamined prior to discharge. The patient will schedule a follow up in the clinic in 2-4 weeks.
[2024-09-18 10:05] VITALS: BP 132/83; PULSE 71; RESP 18
--- NOTE | 2024-09-18 11:11 | FL ---
EXAMINATION TYPE: FL guided pain mgmt statistic DATE OF EXAM: 09/18/2024 9:46 AM COMPARISON: Pre Operative Images if available both CT/MRI or plain film CLINICAL INDICATION: Female, 34 years old with history of Lumbar Epid Inj; TECHNIQUE: FL guided pain mgmt statistic, multiple fluoroscopic images provided for procedure. Total fluoroscopy time: 3.9 seconds Total submitted images to PACS: 1 DAP: [id number] mGym2 Gycm2 uGym2 cGycm2 or equivalent. FINDINGS: Fluoroscopic images during injection for pain management demonstrate multilevel degeneration changes throughout the spine. No evidence for fracture. No acute process identified. IMPRESSION: 1. No evidence for intraoperative complication. 2. Please see the operative/procedural note for further details. [facility], , 09/18/2024 11:09 AM
== END 2024-09-18 10:13 | disposition home or self-care (01) ==
LOC: ORPAIN 08:41
PROVIDERS: ATTEND Specialist
DX: M51.16 Intervertebral disc disorders with radiculopathy, lumbar region (principal); M48.061 Spinal stenosis, lumbar region without neurogenic claudication
CPT/HCPCS: 81025; 62323; Q9966; J1010

== ENCOUNTER 2024-10-09 19:53 | Emergency (ER) | payer BC ==
[2024-10-09 20:09] VITALS: RESP 18; TEMP 98.2
[2024-10-09 20:39] LABS: Basophils % (A) 0 %; Eosinophils # (A) 0.1 k/uL (0-0.7); Eosinophils % (A) 1 %; HCT 41.2 % (34.0-46.0); HGB 14.2 gm/dL (11.4-16.0); Lymphocytes # (A) 0.4 k/uL (1.0-4.8); Lymphocytes % (A) 6 %; MCH 32.1 pg (25.0-35.0); MCHC 34.4 g/dL (31.0-37.0); MCV 93.3 fL (80.0-100.0); Monocytes # (A) 0.1 k/uL (0-1.0); Monocytes % (A) 1 %; Neutrophils # (A) 6.8 k/uL (1.3-7.7); Neutrophils % (A) 92 %; Platelet Count 252 k/uL (150-450); RBC 4.41 m/uL (3.80-5.40); RDW 12.2 % (11.5-15.5); WBC 7.4 k/uL (3.8-10.6)
[2024-10-09 20:54] LABS: ALT 16 U/L (4-34); AST 20 U/L (14-36); African American GFR (CKD) >90 (>60 ml/min/1.73 sqM); Albumin 4.7 g/dL (3.5-5.0); Alkaline Phosphatase 61 U/L (38-126); Anion Gap 8 mmol/L; Blood Urea Nitrogen 11 mg/dL (7-17); Calcium 9.5 mg/dL (8.4-10.2); Carbon Dioxide 24 mmol/L (22-30); Chloride 107 mmol/L (98-107); Glucose 153 mg/dL (74-99); Non-African American GFR(CKD) >90 (>60 ml/min/1.73 sqM); Potassium 4.2 mmol/L (3.5-5.1); Sodium 139 mmol/L (137-145); Total Bilirubin 0.3 mg/dL (0.2-1.3); Total Protein 7.4 g/dL (6.3-8.2)
[2024-10-09 21:37] LABS: Prothrombin Time 10.8 sec (10.0-12.5)
--- NOTE | 2024-10-09 22:18 | ED ---
General Adult HPI - General Chief complaint: Shortness of Breath Stated complaint: Chest Pain,Sob Time Seen by Provider: 10/09/24 20:39 Source: patient Mode of arrival: wheelchair Limitations: no limitations - History of Present Illness Initial comments: 34-year-old female presenting with chief complaint of chest pain and shortness of breath. This has been ongoing for a day. Patient was seen at urgent care earlier today, reports that she was very wheezy, she is given a breathing treatment and steroid injection. Provided with inhaler for home. Patient reports that she recently had a long car ride, [address] No lower extremity swelling. No oral contraceptive use. No history of blood clots. No recent surgery. No dizziness. Patient reports shortness of breath on exertion. No nausea vomiting or abdominal pain. She does have a mild cough that just darted today. Feels like it is difficult to take a good breath in. However she does report improvement since earlier today at the urgent care - Related Data Home Medications Medication Instructions Recorded Confirmed Levothyroxine Sodium [Synthroid] 150 mcg PO DAILY 07/22/14 09/18/24 Ibuprofen [Motrin Ib] 400 mg PO Q8H PRN 11/07/21 09/18/24 Allergies Allergy/AdvReac Type Severity Reaction Status Date / Time No Known Allergies Allergy Verified 10/09/24 20:09 Review of Systems ROS Statement: Those systems with pertinent positive or pertinent negative responses have been documented in the HPI. ROS Other: All systems not noted in ROS Statement are negative. Past Medical History Past Medical History: Musculoskeletal Disorder, Thyroid Disorder Additional Past Medical History / Comment(s): hypothyroidism, herniated discs, DDD History of Any Multi-Drug Resistant Organisms: None Reported Past Surgical History: Section Additional Past Surgical History / Comment(s): CS X 4. Petroleum teeth. Past Anesthesia/Blood Transfusion Reactions: No Reported Reaction Past Psychological History: No Psychological Hx Reported Smoking Status: Never smoker Past Alcohol Use History: None Reported Past Drug Use History: None Reported - Past Family History Father Family Medical History: Cancer, Diabetes Mellitus, Hyperlipidemia General Exam Limitations: no limitations General appearance: alert, in no apparent distress Head exam: Present: atraumatic, normocephalic, normal inspection Eye exam: Present: normal appearance, EOMI Neck exam: Present: normal inspection. Absent: meningismus Respiratory exam: Present: normal lung sounds bilaterally. Absent: respiratory distress, wheezes, rales, rhonchi, stridor, chest wall tenderness Cardiovascular Exam: Present: regular rate, normal rhythm, normal heart sounds. Absent: systolic murmur, diastolic murmur, rubs, gallop, clicks Extremities exam: Absent: pedal edema Neurological exam: Present: alert, oriented X3 Psychiatric exam: Present: normal affect, normal mood Skin exam: Present: warm, dry, normal color Course Vital Signs 10/09/24 10/09/24 20:05 22:57 Temperature 98.2 F Pulse Rate 98 70 Respiratory 18 18 Rate Blood Pressure 136/79 107/70 O2 Sat by Pulse 97 99 Oximetry Medical Decision Making - Medical Decision Making EKG shows sinus tachycardia ventricular rate 102. OR interval 166. QRS 88. QT 331. QTc 389. Was pt. sent in by a medical professional or institution (Dr. PA, CUTTING TOOL SHARPENER, urgent care, hospital, or fpc...) When possible be specific @ -No Did you speak to anyone other than the patient for history (EMS, parent, family, police, friend...)? What history was obtained from this source @ -No Did you review nursing and triage notes (agree or disagree)? Why? @ -I reviewed and agree with nursing and triage notes Were old charts reviewed (outside hosp., previous admission, EMS record, old EKG, old radiological studies, urgent care reports/EKG's, fpc records)? Report findings @ -No old charts were reviewed Differential Diagnosis (chest pain, altered mental status, abdominal pain women, abdominal pain men, vaginal bleeding, weakness, fever, dyspnea, syncope, headache, dizziness, GI bleed, back pain, seizure, CVA, palpatations, mental health, musculoskeletal)? @ -MDM Differential Dyspnea: Coronary syndrome, arrhythmia, tamponade, asthma, COPD, pulmonary embolism, pneumonia, pneumothorax, pulmonary effusion, anaphylaxis, diabetic ketoacidosis, flailed chest, pulmonary contusion, diaphragmatic rupture, anemia, neuromuscular this is not meant to be an all-inclusive list. EKG interpreted by me (3pts min.). @ -As above X-rays interpreted by me (1pt min.). @ -Chest x-ray shows no acute process CT interpreted by me (1pt min.). @ -None done U/S interpreted by me (1pt. min.). @ -None done What testing was considered but not performed or refused? (CT, X-rays, U/S, labs)? Why? @ -None What meds were considered but not given or refused? Why? @ -None Did you discuss the management of the patient with other professionals (professionals i.e. , PA, CUTTING TOOL SHARPENER, lab, RT, psych nurse, geriatric social worker, [facility] shift lead, teacher, customer service officer, block and case maker)? Give summary @ -No Was smoking cessation discussed for >3mins.? @ -No Was critical care preformed (if so, how long)? @ -No Were there social determinants of health that impacted care today? How? (Homelessness, low income, unemployed, alcoholism, drug addiction, transportation, low edu. Level, literacy, decrease access to med. care, fpc, rehab)? @ -No Was there de-escalation of care discussed even if they declined (Discuss DNR or withdrawal of care, Hospice)? DNR status @ -No What co-morbidities impacted this encounter? (DM, HTN, Smoking, COPD, CAD, Cancer, CVA, ARF, Chemo, Hep., AIDS, mental health diagnosis, sleep apnea, morbid obesity)? @ -None Was patient admitted / discharged? Hospital course, mention meds given and route, prescriptions, significant lab abnormalities, going to OR and other pertinent info. @ -34-year-old female presenting with chief complaint of chest pain and difficulty breathing. She was recently seen in urgent care states that she was quite wheezy at the time was given steroids and a breathing treatment as well as and an albuterol inhaler for home. She does report improvement since then, however she did have a recent long car ride which was [address] and and there is concern for possible PE. History and physical examination are conducted. Patient is mildly tachycardic. D-dimer 0.31 and negative troponin. No leukocytosis or anemia. Chest x-ray shows no acute process. Ambulatory O2 Ranges from 95-96% on room air. Patient does report improvement since earlier today. She is educated on today's findings. Discharged home. Follow-up with PCP. Report back to ER with any new or worsening symptoms. Discussed return parameters and answered all questions. Patient conveyed verbal understanding and agreed to the plan. I discussed this case in detail with my attending Dr. peña Undiagnosed new problem with uncertain prognosis? @ -No Drug Therapy requiring intensive monitoring for toxicity (Heparin, Nitro, Insulin, Cardizem)? @ -No Were any procedures done? @ -No Diagnosis/symptom? @ -Dyspnea Acute, or Chronic, or Acute on Chronic? @ -Acute Uncomplicated (without systemic symptoms) or Complicated (systemic symptoms)? @ -Uncomplicated Side effects of treatment? @ -No Exacerbation, Progression, or Severe Exacerbation? @ -No Poses a threat to life or bodily function? How? (Chest pain, USA, NM, pneumonia, PE, COPD, DKA, ARF, appy, cholecystitis, CVA, Diverticulitis, Homicidal, Suicidal, threat to staff... and all critical care pts) @ -Low likelihood - Lab Data Result diagrams: 10/09/24 20:13 10/09/24 20:13 Lab Results 10/09/24 10/09/24 10/09/24 Range/Units 20:13 20:13 20:13 WBC 7.4 (3.8-10.6) k/uL RBC 4.41 (3.80-5.40) m/uL Hgb 14.2 (11.4-16.0) gm/dL Hct 41.2 (34.0-46.0) % MCV 93.3 (80.0-100.0) fL MCH 32.1 (25.0-35.0) pg MCHC 34.4 (31.0-37.0) g/dL RDW 12.2 (11.5-15.5) % Plt Count 252 (150-450) k/uL MPV 8.0 Neutrophils % 92 % Lymphocytes % 6 % Monocytes % 1 % Eosinophils % 1 % Basophils % 0 % Neutrophils # 6.8 (1.3-7.7) k/uL Lymphocytes # 0.4 L (1.0-4.8) k/uL Monocytes # 0.1 (0-1.0) k/uL Eosinophils # 0.1 (0-0.7) k/uL Basophils # 0.0 (0-0.2) k/uL PT 10.8 (10.0-12.5) sec INR 1.0 (<1.2) APTT 24.0 (22.0-30.0) sec D-Dimer 0.31 (<0.60) mg/L FEU Sodium 139 (137-145) mmol/L Potassium 4.2 (3.5-5.1) mmol/L Chloride 107 (98-107) mmol/L Carbon Dioxide 24 (22-30) mmol/L Anion Gap 8 mmol/L BUN 11 (7-17) mg/dL Creatinine 0.68 (0.52-1.04) mg/dL Est GFR (CKD-EPI)AfAm >90 (>60 ml/min/1.73 sqM) Est GFR (CKD-EPI)NonAf >90 (>60 ml/min/1.73 sqM) Glucose 153 H (74-99) mg/dL Calcium 9.5 (8.4-10.2) mg/dL Total Bilirubin 0.3 (0.2-1.3) mg/dL AST 20 (14-36) U/L ALT 16 (4-34) U/L Alkaline Phosphatase 61 (38-126) U/L Troponin I (0.000-0.034) ng/mL Total Protein 7.4 (6.3-8.2) g/dL Albumin 4.7 (3.5-5.0) g/dL 10/09/24 Range/Units 20:13 WBC (3.8-10.6) k/uL RBC (3.80-5.40) m/uL Hgb (11.4-16.0) gm/dL Hct (34.0-46.0) % MCV (80.0-100.0) fL MCH (25.0-35.0) pg MCHC (31.0-37.0) g/dL RDW (11.5-15.5) % Plt Count (150-450) k/uL MPV Neutrophils % % Lymphocytes % % Monocytes % % Eosinophils % % Basophils % % Neutrophils # (1.3-7.7) k/uL Lymphocytes # (1.0-4.8) k/uL Monocytes # (0-1.0) k/uL Eosinophils # (0-0.7) k/uL Basophils # (0-0.2) k/uL PT (10.0-12.5) sec INR (<1.2) APTT (22.0-30.0) sec D-Dimer (<0.60) mg/L FEU Sodium (137-145) mmol/L Potassium (3.5-5.1) mmol/L Chloride (98-107) mmol/L Carbon Dioxide (22-30) mmol/L Anion Gap mmol/L BUN (7-17) mg/dL Creatinine (0.52-1.04) mg/dL Est GFR (CKD-EPI)AfAm (>60 ml/min/1.73 sqM) Est GFR (CKD-EPI)NonAf (>60 ml/min/1.73 sqM) Glucose (74-99) mg/dL Calcium (8.4-10.2) mg/dL Total Bilirubin (0.2-1.3) mg/dL AST (14-36) U/L ALT (4-34) U/L Alkaline Phosphatase (38-126) U/L Troponin I <0.012 (0.000-0.034) ng/mL Total Protein (6.3-8.2) g/dL Albumin (3.5-5.0) g/dL Disposition Clinical Impression: Dyspnea Disposition: HOME SELF-CARE Condition: Good Instructions (If sedation given, give patient instructions): Dyspnea (ED) Additional Instructions: Follow-up with your PCP. Report back to ER with any new or worsening symptoms. Take the medications prescribed to you by urgent care Is patient prescribed a controlled substance at d/c from ED?: No Referrals: Stevie Lopez DO [Primary Care Provider] - 1-2 days Time of Disposition: 22:20
[2024-10-09 22:58] VITALS: BP 107/70; PULSE 70
--- NOTE | 2024-10-09 23:14 | XR ---
EXAMINATION TYPE: XR chest 2V DATE OF EXAM: 10/09/2024 CLINICAL HISTORY: Chest pain with shortness of breath for one day TECHNIQUE: Frontal and lateral views of the chest are obtained. COMPARISON: None FINDINGS: Overlying bra strap is seen. There is no focal air space opacity, pleural effusion, or pneu mothorax seen. The cardiac silhouette size is within normal limits. The osseous structures are int act. IMPRESSION: No acute cardiopulmonary process. [facility], , 10/09/2024 11:11 PM
== END 2024-10-09 23:20 | disposition home or self-care (01) ==
LOC: EC 19:53
DX: R06.00 Dyspnea, unspecified (principal); R00.0 Tachycardia, unspecified
CPT/HCPCS: 36415; 71046; 80053; 84484; 85025; 85379; 85610; 85730; 93005; 99285

== ENCOUNTER → 2024-10-21 | Outpatient (CLI) | payer BC ==
[2024-10-21 09:49] VITALS: BP 115/81; PULSE 85; RESP 19; TEMP 96.8
--- NOTE | 2024-10-21 15:04 | P.PAINPG ---
PQRS Measure Charge Sheet Comment: HISTORY OF PRESENT ILLNESS: A 34 yr old female presents today w severe and chronic LBP > 3 mo secondary to radiculoapthy, spondylosis and facet arthropathy without myelopathy for evaluation s/p CATALINA L4-L5 #1. Pt states she experienced 75 % pain relief x 1 mo s/p procedure. Pt states pain level is provoked at 2 /10 in intensity, intermittent, localized in the lower lumbar spine, predominantly axial, achy in character w occasional shooting pain towards the L hip and LLE. Pain is provoked by bending, sitting. Pain is alleviated by chiropractic treatments x 1 yr which ended in Fall 2022 , physician guided home exercises/ stretches every other day since Fall 2022, heat, medications, topical , repositioning and rest . Interventional procedrues include CATALINA L4-L5 x1 Medications include Ibu, BioFreeze Gel REVIEW OF ORGAN SYSTEMS: CONSTITUTIONAL: No fevers or chills. No recent weight loss. NEUROLOGICAL: + numbness and tingling along the distal extremities. No seizure disorders or headaches. MUSCULOSKELETAL: + pain PSYCHIATRIC: Denies current depression or suicidal thoughts. Physical Examinations : Constitutional : Cooperative , not in acute distress . Neurologic : Cranial nerve II to XII intact. No focal neurological deficits. Psychiatric : alert & oriented x 3. Matching mood & appropriate affect. Judgment & insight intact. Musculoskeletal : Cervical Spine Motor strength in the deltoid and biceps: Normal right side. Normal Left side Motor strength biceps and the wrist extensors: Normal right side . Normal left side Motor strength in the triceps muscle: Normal right side. Normal left side Deep tendon reflexes: Normal at the biceps. Normal at Brachioradialis. Normal at triceps Vertebral body tenderness to deep palpation over Cervical facet loading test: positive bilaterally Spurling test: positive bilaterally Neck distraction test: positive bilaterally Jared sign: positive bilaterally Lumbar spine Motor strength lower extremities ,thigh and legs 5/5 Right side , 5/5 Left side Deep tendon reflexes : Normal Knee Jerk. Normal Ankle Jerk Vertebral body tenderness over Callejas Test positive L4-5 Lumbar facet Loading Test: positive Right / positive Left Range of motion of the lumbar spine Flexion 30 degrees, extension 10 degrees Straight Leg Raise test: Left/ Right positive at < 35 degrees Angelito test: positive right / positive left. Severe tenderness over the Sacroiliac joint on the Right / Left sides Gaenslen test: positive bilaterally Seated flexion test: positive bilaterally. Sacral spine : Severe tenderness over the Sacroiliac joint: right side / left side Range of motion: Flexion of the lumbar spine <60 degrees Range of motion: Extension of the lumbar spine <20 degrees Gaenslen's Test positive Angelito test: positive right side / left side Thigh Thrust Test Sacral Thrust Test Imaging: MRI non contrast of the lumbar spine from 05/05/24 reviewed Assessment/ Plan : Lumbar radiculopathy, L4-L5 spinal canal stenosis, L Hip Trochanteric Bursitis, BL Hip OA Will manage residual pain and may RTC on an as needed basis. All questions answered. I have spent greater than 30 minutes on patient care today. Dr Carvajal was available by phone for the evaluation of this patient. The time was used to review the medical records including relevant urine studies and Prescription history (MAPs), review of the available imaging, evaluation and examination of the patient, coordination of care with the medical staff and if applicable referring physicians, as well as creation of the medical record PQRS Narrative: Smoking Status Never smoker Hx Alcohol Use (MH) Yes Home Medications: Ambulatory Orders Levothyroxine Sodium [Synthroid] 150 mcg PO DAILY 07/22/14 Ibuprofen [Motrin Ib] 400 mg PO Q8H PRN 11/07/21 Controlled Substance Measures - Controlled Substance Measures Is patient prescribed a controlled substance at discharge?: No
== END ==
LOC: PNWHC3 09:33
PROVIDERS: ATTEND Specialist
DX: M47.26 Other spondylosis with radiculopathy, lumbar region (principal); M48.061 Spinal stenosis, lumbar region without neurogenic claudication; M70.62 Trochanteric bursitis, left hip; M16.0 Bilateral primary osteoarthritis of hip
CPT/HCPCS: 99211